=== PATIENT | male | born 1940 | race Caucasian/White ===

== ENCOUNTER 2017-01-21 10:52 | Emergency (ER) | payer OTHER ==
[~2017-01-21] VITALS: Ht 177.8 cm; Wt 78.0 kg
[~2017-01-21 10:52] MED LIST: ATEN-138 PO; HYDR1CAP PO; HYDR25TA6 PO; LOSA50TA2 PO; MELO-210 PO; SIMV20TA2 PO
[2017-01-21 10:55] VITALS: Ht 177.8 cm; Wt 78.0 kg
[2017-01-21] MEDS ORDERED: ONDANSETRON 4 MG INJ IV STA (11:59)
[2017-01-21] MEDS ORDERED: SOD CHLORIDE 0.9% 1,000 ML IV STA (11:59)
[2017-01-21] MEDS ORDERED: MECLIZINE 12.5 MG TAB PO ONE (12:00)
--- NOTE | 2017-01-21 13:08 | ERD ---
ER Documentation Chief Complaint Chief Complaint VOMITING ,DIZZINESS ,COUGH STARTED TODAY HPI This is a very pleasant 76-year-old Czech-speaking male with a known history of hypertension that was brought into the emergency department by his after he developed a sudden onset of dizziness this morning upon awakening. He felt as though the room was spinning around him but denied a headache. He did have 2 episodes of nonbloody nonbilious emesis. His indicated that yesterday he ate pizza and had 2 glasses of wine for dinner and afterwards stating he did feel nauseous but was able to sleep comfortably throughout the night. The patient was concerned that he could have food poisoning but denied any diarrhea. He has no changes in vision. He has no chest pain or pressure that radiates to the neck arm back or jaw. He also states he has had a nonproductive cough and no recent travel. No shortness of breath at rest or exertion and he denies any abdominal pain. ROS All systems reviewed and are negative except as per history of present illness. Medications Home Meds Active Scripts Meclizine Hcl* (Antivert*) 12.5 Mg Tab, 12.5 MG PO Q6H Y for DIZZINESS, #20 TAB Prov:ANTHONY TEAGUE 01/21/17 Ondansetron (Ondansetron Odt) 4 Mg Tab.rapdis, 4 MG PO Q6H Y for NAUSEA AND/OR VOMITING, #10 TAB Prov:ANTHONY TEAGUE 01/21/17 Reported Medications Simvastatin (Simvastatin) 20 Mg Tablet, 20 MG PO DAILY 05/06/12 Hydrochlorothiazide (Hydrochlorothiazide) 25 Mg Tablet, 25 MG PO DAILY 05/06/12 Losartan Potassium* (Cozaar*) 50 Mg Tablet, 50 MG PO BID 05/06/12 Atenolol (Tenormin) 25 Mg Tab, 25 MG PO BID 05/06/12 Meloxicam* (Mobic*) 15 Mg Tablet, 15 MG PO DAILY 05/06/12 Discontinued Reported Medications Hydrocodone Bit/Acetaminophen (Hydrocodone-Apap 5-500 Cap) 1 Cap Capsule, 1 TAB PO QID 05/06/12 Allergies Allergies: Coded Allergies: ampicillin (Verified Allergy, Intermediate, RASH, 05/06/12) PMhx/Soc History of Surgery: Yes (HERNIA REPAIR) Anesthesia Reaction: No Hx Neurological Disorder: No Hx Respiratory Disorders: No Hx Cardiac Disorders: No Hx Psychiatric Problems: No Hx Miscellaneous Medical Probl: Yes (HTN, BPH, Cholesterol.) Hx Alcohol Use: No Hx Substance Use: No Hx Tobacco Use: No Smoking Status: Never smoker Physical Exam Vitals Vital Signs Date Time Temp Pulse Resp B/P Pulse Ox O2 Delivery O2 Flow Rate FiO2 01/21/17 12:14 98.1 74 16 150/77 98 Room Air 01/21/17 10:55 97.9 81 18 167/87 98 Physical Exam Constitutional:Well-developed. Well-nourished. HEENT:Normocephalic. Atraumatic.Pupils were equal round reactive to light. Dry mucous membranes.No tonsillar exudates. Endoscopy exam shows sharp optic disks and venous pulsations are present Neck: No nuchal rigidity. No lymphadenopathy. No posterior cervical spine tenderness or step-offs. Respiratory: Not using accessory muscles of respiration.Lungs were clear to auscultation bilaterally. No rhonchi. No rales. No wheezing. Cardiovascular: Regular rate regular rhythm.No murmurs. No rubs were appreciated.S1, S2 normal. Distal pulses are palpable 2+ bilaterally. GI: Abdomen was soft. Nontender. Non Distended. No pulsatile abdominal masses or bruits. No rebound. No guarding. Bowel sounds were present and normal. Muscle skeletal: Full range of motion of both the upper and lower extremities bilaterally.Normal muscle tone.No assymetrical calf tenderness or swelling. Skin: No petechia, no purpura. No lesions on the palms or the soles of the feet. No maculopapular rash. NEURO: Patient was alert, awake, orientated x3.No facial droop. Gait observed and normal with no ataxia.Speech had regular rate and rhythm. No focal neurological deficits. Peripheral fatigable nystagmus Result Diagram: 01/21/17 1200 01/21/17 1200 Results 24 hrs Laboratory Tests Test 01/21/17 12:00 White Blood Count 10.410^3/ul Red Blood Count 5.0110^6/ul Hemoglobin 15.4g/dl Hematocrit 45.3% Mean Corpuscular Volume 90.4fl Mean Corpuscular Hemoglobin 30.7pg Mean Corpuscular Hemoglobin Concent 34.0g/dl Red Cell Distribution Width 13.0% Platelet Count 42175^3/UL Mean Platelet Volume 11.1fl Neutrophils % 80.6% Lymphocytes % 12.7% Monocytes % 5.8% Eosinophils % 0.2% Basophils % 0.3% Nucleated Red Blood Cells % 0.0/100WBC Neutrophils # 8.410^3/ul Lymphocytes # 1.310^3/ul Monocytes # 0.610^3/ul Eosinophils # 0.010^3/ul Basophils # 0.010^3/ul Nucleated Red Blood Cells # 0.010^3/ul Prothrombin Time 13.8Sec Prothrombin Time Ratio 1.1 INR International Normalized Ratio 1.06 Activated Partial Thromboplast Time 30.7Sec Sodium Level 142mmol/L Potassium Level 4.1mmol/L Chloride Level 102mmol/L Carbon Dioxide Level 29mmol/L Anion Gap 15 Blood Urea Nitrogen 19mg/dl Creatinine 0.86mg/dl Glucose Level 150mg/dl Calcium Level 9.5mg/dl Total Bilirubin 0.3mg/dl Direct Bilirubin 0.00mg/dl Indirect Bilirubin 0.3mg/dl Aspartate Amino Transf (AST/SGOT) 30IU/L Alanine Aminotransferase (ALT/SGPT) 40IU/L Alkaline Phosphatase 60IU/L Troponin I < 0.012ng/ml Total Protein 7.9g/dl Albumin 4.2g/dl Globulin 3.70g/dl Albumin/Globulin Ratio 1.13 Amylase Level 105U/L Lipase 167U/L Current Medications Medications (Trade) Dose Ordered Sig/Estela Route PRN Reason Start Time Stop Time Status Last Admin Dose Admin Sodium Chloride (NS) 1,000 ml @ 1,000 mls/hr Q1H STAT IV 01/21/17 11:59 01/21/17 12:58 DC 01/21/17 12:10 Ondansetron HCl (Zofran Inj) 4 mg ONCE STAT IV 01/21/17 11:59 01/21/17 12:00 DC 01/21/17 12:10 Meclizine HCl (Antivert) 25 mg ONCE ONCE PO 01/21/17 12:00 01/21/17 12:01 DC 01/21/17 12:10 Procedures/[facility] This patient was seen and evaluated by myself. The patient presented to the emergency department complaining of dizziness. My differential diagnosis included but was not limited to hypovolemia, myocardial infarction, pulmonary embolism, hypoglycemia, hypoxia, anemia, vasovagal episode, hypothyroidism, anxiety, peripheral or central vertigo. The patient was placed on a outpatient admitting clerk, continuous pulse oximetry and IV access established by nursing staff. Patient was given Zofran and Antivert and a liter bolus of normal saline. He stated his symptoms had significantly improved. I did feel is necessary to obtain a CT scan of the head and there is no evidence of intracerebral hemorrhage or mass-effect. CT indicated the followin. Moderate generalized cerebral volume loss and mild nonspecific chronic microvascular disease. 2. 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 Recommend a follow-up MRI of the brain with without contrast for further evaluation. 3. Negative for intracranial masses hemorrhages or midline shift. 12 Lead EKG tracing ordered and reviewed by myself showed: Normal sinus rhythm of 69 bpm and no arrhythmia. AK interval normal. QRS duration normal. No ST segment elevation No ST segment depression. No changes consistent with acute ischemia. No evidence of myocardial ischemia. I did feel the patient's symptoms could have been a result of a viral etiology causing the emesis. There is no signs of logical deficits to suggest cerebral ischemia or central vertigo at this time. The patient felt comfortable being discharged home. The patient was discharged home in fair condition. They were instructed to return to the emergency department at any time if there was any worsening of their condition. The patient stated they would follow up with their PCP in the next 24-48 hours to initiate a suitable medication regimen under the care of their PCP as well as to allow their PCP to monitor any drug reactions. The patient was discharged home with prescriptions after they gave informed consent to the new medication. They were also fully informed by myself on the adverse effects and adverse drug interactions in order to provide adequate safeguards to prevent possible adverse reactions to medications. Departure Diagnosis: Primary Impression: Vomiting Vomiting type: unspecified Vomiting Intractability: non-intractable Nausea presence: with nausea Qualified Code: R11.2 - Non-intractable vomiting with nausea, unspecified vomiting type Additional Impression: Peripheral vertigo Laterality: unspecified laterality Qualified Code: H81.399 - Peripheral vertigo, unspecified laterality Condition: Fair ANTHONY TEAGUE Jan 21, 2017 13:08
--- NOTE | 2017-01-21 13:33 | RADRPT ---
PROCEDURE: CT Brain without contrast. CLINICAL INDICATION: Headache. Vomiting. TECHNIQUE: CT scan of the brain was performed on a multidetector high-resolution CT scan. Axial im aging was obtained of the brain without contrast administration. Coronal and sagittal reformatted i mages were obtained from the axial source images. Standard CT scan of the head without contrast prot ocols were performed. The total exam CTDI equals 44.73 mGy and the total exam DLP equals 720.23 mGy-cm. One or more of the following dose reduction techniques were used: - Automated exposure control. - Adjustment of the mA and/or kV according to patient size. Use of iterative reconstruction technique. COMPARISON: None. FINDINGS: The ventricular system and peripheral CSF spaces are proportionate prominent consistent with moderat e generalized cerebral volume loss. There is mild periventricular deep white matter changes that is nonspecific and consistent with chronic microvascular ischemic disease. Along the dorsal aspect of t he medulla is a 1 cm coarse calcification of uncertain etiology but likely evidence of previous infl ammatory disease such as cysticercosis. Negative for intracranial masses hemorrhages or midline shif t. The [place]-white matter junction is unremarkable. The bones of the calvarium are intact. The visual ized paranasal sinuses and mastoids are unremarkable. IMPRESSION: 1. Moderate generalized cerebral volume loss and mild nonspecific chronic microvascular disease. 2. 1 cm coarse calcification along the dorsal aspect of the medulla of uncertain etiology and may r epresent sequela of neurocysticercosis. Recommend a follow-up MRI of the brain with without contrast for further evaluation. 3. Negative for intracranial masses hemorrhages or midline shift. RPTAT:AAJJ Physician Chuck Date Time Electronically viewed and signed by Physician Chuck on 01/21/2017 13:33 BM/
--- NOTE | 2017-01-21 13:39 | RADRPT ---
PROCEDURE: XR Chest. CLINICAL INDICATION: chest pain TECHNIQUE: Single frontal view of the chest was obtained COMPARISON: None FINDINGS: The heart and mediastinum are within normal limits. The lungs are clear. There is no pleural effusion or pneumothorax. RPTAT: AA IMPRESSION: No acute disease. .Ryan Maharaj MD, Date Time Electronically viewed and signed by .Ryan Maharaj MD, on 01/21/2017 13:38 .S/
[2017-01-21] MEDS ORDERED: MECL12.574 PO (13:49)
[2017-01-21] MEDS ORDERED: ONDA4TAB14 PO (13:49)
[2017-01-21 14:04] VITALS: BP 156/84; PULSE 66; RESP 18; TEMP 98.1
== END 2017-01-21 14:13 | disposition home or self-care (01) ==
LOC: E/R 10:52
DX: R11.2 Nausea with vomiting, unspecified (principal); H81.399 Other peripheral vertigo, unspecified ear; I10 Essential (primary) hypertension; R07.9 Chest pain, unspecified
CPT/HCPCS: 70450; 71010; 80053; 82150; 83690; 84484; 85025; 85610; 85730; 93005; 96361; 96374; 99285; J2405; J7030